=== PATIENT | male | born 1985 | race American Indian/Alaskan Native ===

== ENCOUNTER 2017-02-23 15:53 | Emergency (ER) | payer BC ==
[2017-02-23 16:48] VITALS: BP 145/89
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
--- NOTE | 2017-02-23 19:39 | Emergency Department Report ---
ED Extremity Problem HPI - General Chief complaint: Extremity Injury, Upper Stated complaint: RIGHT HAND PAIN Time Seen by Provider: 02/23/17 18:31 Source: patient Mode of arrival: Ambulatory Limitations: No Limitations - History of Present Illness MD Complaint: extremity pain Location: right, upper extremity Severity scale (0 -10): 10 - Related Data Previous Rx's Medication Instructions Recorded Last Taken Type Cyclobenzaprine [Flexeril] 10 mg PO TID PRN #15 tablet 10/31/13 Unknown Rx HYDROcodone/APAP 5-325 [[place] 1 - 2 each PO Q4-6H PRN #12 tablet 10/31/13 Unknown Rx 5/325 mg] Ibuprofen [Motrin 600 MG tab] 600 mg PO Q8H PRN #20 tablet 10/31/13 Unknown Rx HYDROcodone/APAP 5-325 [[place] 1 each PO Q4-6H PRN #16 tablet 11/28/14 Unknown Rx 5/325] Sulfamethoxazole/Trimethoprim 1 each PO Q12H #20 11/28/14 Unknown Rx [Bactrim Ds] metroNIDAZOLE [Flagyl] 500 mg PO Q8H #21 tablet 11/28/14 Unknown Rx Allergies Allergy/AdvReac Type Severity Reaction Status Date / Time No Known Allergies Allergy Verified 10/31/13 02:30 ED Review of Systems ROS: Stated complaint: RIGHT HAND PAIN Other details as noted in HPI ED Past Medical Hx - Past Medical History Hx Hypertension: Yes - Surgical History Past Surgical History?: No - Social History Smoking Status: Never Smoker Substance Use Type: None - Medications Home Medications: Home Medications Medication Instructions Recorded Confirmed Last Taken Type Cyclobenzaprine [Flexeril] 10 mg PO TID PRN #15 tablet 10/31/13 Unknown Rx HYDROcodone/APAP 5-325 [[place] 1 - 2 each PO Q4-6H PRN #12 tablet 10/31/13 Unknown Rx 5/325 mg] Ibuprofen [Motrin 600 MG tab] 600 mg PO Q8H PRN #20 tablet 10/31/13 Unknown Rx HYDROcodone/APAP 5-325 [[place] 1 each PO Q4-6H PRN #16 tablet 11/28/14 Unknown Rx 5/325] Sulfamethoxazole/Trimethoprim 1 each PO Q12H #20 11/28/14 Unknown Rx [Bactrim Ds] metroNIDAZOLE [Flagyl] 500 mg PO Q8H #21 tablet 11/28/14 Unknown Rx ED Physical Exam - General Limitations: No Limitations General appearance: alert, in no apparent distress - Head Head exam: Present: atraumatic, normocephalic - Neck Neck exam: Present: normal inspection, full ROM - Neurological Exam Neurological exam: Present: alert, normal gait - Psychiatric Psychiatric exam: Present: agitated ED Course Vital Signs 02/23/17 16:42 Temperature 98.5 F Pulse Rate 92 H Respiratory 16 Rate Blood Pressure 145/89 O2 Sat by Pulse 94 Oximetry - Reevaluation(s) Reevaluation #1: 02/23/17 19:35 Upon initial evaluation of pt, he was not cooperative. When I asked him questions regarding the reason for his ED visit/ injury, he sat up and began yelling. PT aware I will review chart and return in attempts to assess his injuries. 02/23/17 19:58 PT not in room. Prior to this, pt was in hallway yelling. Reevaluation #2: 02/23/17 20:25 PT not in room. Reevaluation #3: 02/23/17 21:20 PT not in room - Pulse Oximetry Interpretation Digit-Finger Initial Pulse Oximetry Readin Actions Taken: none ED Medical Decision Making - Radiology Data Radiology results: report reviewed XR R hand- Traumatic intra-articular fracture of the distal 4th phalanx - Differential Diagnosis fx, contusion, strain Critical Care Time: No Critical care attestation.: If time is entered above; I have spent that time in minutes in the direct care of this critically ill patient, excluding procedure time. ED Disposition Clinical Impression: Finger fracture, right Qualifiers: Encounter type: initial encounter Finger: ring finger Fracture type: closed Phalanx: distal Fracture alignment: displaced Qualified Code(s): S62.634A - Displaced fracture of distal phalanx of right ring finger, initial encounter for closed fracture Disposition: ELOPED Is pt being admited?: No Does the pt Need Aspirin: No Condition: Stable Referrals: PRIMARY CARE, [Primary Care Provider] - 3-5 Days VALE PENA MD [Staff Physician] - 3-5 Days Time of Disposition: 21:20
== END 2017-02-23 21:00 | disposition left against medical advice (07) ==
LOC: ED 15:53
DX: S62.634A Displaced fracture of distal phalanx of right ring finger, initial encounter for closed fracture (principal); I10 Essential (primary) hypertension; X58.XXXA Exposure to other specified factors, initial encounter; Y93.89 Activity, other specified; Y99.9 Unspecified external cause status; Y92.89 Other specified places as the place of occurrence of the external cause

== ENCOUNTER 2017-02-25 17:08 | Emergency (ER) | payer BC ==
[2017-02-25 17:18] VITALS: BP 149/95
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
[2017-02-25] MEDS ORDERED: MOTRIN PO ONE (18:36)
[2017-02-25] MEDS ORDERED: NORCO 5/325 PO ONE (18:36)
== END 2017-02-25 19:05 | disposition home or self-care (01) ==
LOC: ED 17:08
DX: S62.634A Displaced fracture of distal phalanx of right ring finger, initial encounter for closed fracture (principal); I10 Essential (primary) hypertension; W23.0XXA Caught, crushed, jammed, or pinched between moving objects, initial encounter; Y93.89 Activity, other specified; Y99.8 Other external cause status; Y92.488 Other paved roadways as the place of occurrence of the external cause

== ENCOUNTER 2017-09-17 12:44 | Emergency (ER) | payer BC ==
--- NOTE | 2017-09-17 14:20 | XRay Report ---
LEFT HAND, 3 views: History: Left hand injury. The bony architecture is intact. Bony alignment is normal. No soft tissue abnormalities are seen. The joint spaces appear preserved. IMPRESSION: Normal left hand.
[2017-09-17] MEDS ORDERED: MOTRIN PO ONE (14:36)
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
[2017-09-17 15:04] VITALS: BP 122/80
== END 2017-09-17 15:04 | disposition home or self-care (01) ==
LOC: ED 12:44
DX: S66.912A Strain of unspecified muscle, fascia and tendon at wrist and hand level, left hand, initial encounter (principal); I10 Essential (primary) hypertension; V89.2XXA Person injured in unspecified motor-vehicle accident, traffic, initial encounter; Y93.89 Activity, other specified; Y92.89 Other specified places as the place of occurrence of the external cause; Y99.8 Other external cause status
CPT/HCPCS: 99283

== ENCOUNTER 2019-04-18 10:25 | Emergency (ER) | payer SELFPAY | END 2019-04-18 13:33 | disposition left against medical advice (07) | LOC: ED 10:25 | DX: M25.529 Pain in unspecified elbow (principal); Z53.21 Procedure and treatment not carried out due to patient leaving prior to being seen by health care provider ==

== ENCOUNTER 2019-04-19 10:05 | Emergency (ER) | payer SELFPAY ==
[2019-04-19 10:10] VITALS: BP 143/100
--- NOTE | 2019-04-19 11:07 | Emergency Department Report ---
ED Upper Extremity Inj HPI - General Chief Complaint: Skin/Abscess/Foreign Body Stated Complaint: LFT ELBOW CYST/PAIN Time Seen by Provider: 04/19/19 10:24 Source: patient Mode of arrival: Ambulatory Limitations: No Limitations - History of Present Illness Initial Comments: This is a 33-year-old male nontoxic, well nourished in appearance, no acute sign s of distress presents to the ED with c/o of left elbow swelling x2 days. Patient denies any known trauma. Patient denies any numbness, tingling, fever, chills, nausea, vomiting, chest pain, shortness of breath, headache, stiff neck. Patient denies any joint redness. Patient denies decreased range of motion. Patient denies any allergies. PMH is HTN but stated he is noncompliant with medications and is doing diet control. MD Complaint: Injury to:: left, elbow -: days(s) (2) Other Extremity Injury: Elbow: Left Severity scale (0 -10): 0 Improves With: none Worsens With: none Associated Symptoms: denies other symptoms. denies: weakness, numbness, neck pain, suspects foreign body, nausea/vomiting, heard/felt popping sensat - Related Data Previous Rx's Medication Instructions Recorded Last Taken Type Cyclobenzaprine [Flexeril] 10 mg PO TID PRN #15 tablet 10/31/13 Unknown Rx HYDROcodone/APAP 5-325 [[place] 1 each PO Q4-6H PRN #16 tablet 11/28/14 Unknown Rx 5/325] Sulfamethoxazole/Trimethoprim 1 each PO Q12H #20 11/28/14 Unknown Rx [Bactrim Ds] metroNIDAZOLE [Flagyl] 500 mg PO Q8H #21 tablet 11/28/14 Unknown Rx HYDROcodone/APAP 5-325 [[place] 1 - 2 each PO Q4-6H PRN #12 tablet 02/25/17 Unknown Rx 5-325 mg TAB] Ibuprofen [Motrin 600 MG tab] 600 mg PO Q8H PRN #20 tablet 02/25/17 Unknown Rx Cyclobenzaprine [Flexeril] 10 mg PO QHS PRN #7 tablet 09/17/17 Unknown Rx Ibuprofen [Motrin] 600 mg PO Q8H PRN #30 tablet 09/17/17 Unknown Rx Naproxen [Naprosyn TAB] 500 mg PO Q12H PRN #20 tablet 04/19/19 Unknown Rx Allergies Allergy/AdvReac Type Severity Reaction Status Date / Time No Known Allergies Allergy Verified 04/19/19 10:06 ED Review of Systems ROS: Stated complaint: LFT ELBOW CYST/PAIN Other details as noted in HPI Constitutional: denies: chills, fever Eyes: denies: eye pain, eye discharge, vision change ENT: denies: ear pain, throat pain Respiratory: denies: cough, shortness of breath, wheezing Cardiovascular: denies: chest pain, palpitations Endocrine: no symptoms reported Gastrointestinal: denies: abdominal pain, nausea, diarrhea Genitourinary: denies: urgency, dysuria Musculoskeletal: denies: back pain, joint swelling, arthralgia Skin: denies: rash, lesions Neurological: denies: headache, weakness, paresthesias Psychiatric: denies: anxiety, depression Hematological/Lymphatic: denies: easy bleeding, easy bruising ED Past Medical Hx - Past Medical History Previous Medical History?: No Hx Hypertension: Yes (no meds) - Surgical History Past Surgical History?: No - Social History Smoking Status: Never Smoker Substance Use Type: None - Medications Home Medications: Home Medications Medication Instructions Recorded Confirmed Last Taken Type Cyclobenzaprine [Flexeril] 10 mg PO TID PRN #15 tablet 10/31/13 Unknown Rx HYDROcodone/APAP 5-325 [[place] 1 each PO Q4-6H PRN #16 tablet 11/28/14 Unknown Rx 5/325] Sulfamethoxazole/Trimethoprim 1 each PO Q12H #20 11/28/14 Unknown Rx [Bactrim Ds] metroNIDAZOLE [Flagyl] 500 mg PO Q8H #21 tablet 11/28/14 Unknown Rx HYDROcodone/APAP 5-325 [[place] 1 - 2 each PO Q4-6H PRN #12 tablet 02/25/17 Unknown Rx 5-325 mg TAB] Ibuprofen [Motrin 600 MG tab] 600 mg PO Q8H PRN #20 tablet 02/25/17 Unknown Rx Cyclobenzaprine [Flexeril] 10 mg PO QHS PRN #7 tablet 09/17/17 Unknown Rx Ibuprofen [Motrin] 600 mg PO Q8H PRN #30 tablet 09/17/17 Unknown Rx Naproxen [Naprosyn TAB] 500 mg PO Q12H PRN #20 tablet 04/19/19 Unknown Rx ED Physical Exam - General Limitations: No Limitations General appearance: alert, in no apparent distress - Head Head exam: Present: atraumatic, normocephalic - Extremities Exam Extremities exam: Present: normal inspection, full ROM, normal capillary refill. Absent: tenderness, joint swelling - Expanded Upper Extremity Exam Left General: Present: normal inspection Shoulder Exam: Present: normal inspection, full ROM. Absent: tenderness Upper Arm exam: Present: normal inspection, full ROM. Absent: tenderness Elbow exam: Present: normal inspection, full ROM, swelling (bursitis). Absent: tenderness, abrasion, laceration, ecchymosis, deformity, crepidus, dislocation, erythema, effusion, pain w/ pronation/supination, tenderness over radial head Forearm Wrist exam: Present: normal inspection, full ROM. Absent: tenderness Hand Wrist exam: Present: normal inspection, full ROM. Absent: tenderness Vascular: Present: vascular compromise, normal capillary refill - Neurological Exam Neurological exam: Present: alert, oriented X3, normal gait - Psychiatric Psychiatric exam: Present: normal affect, normal mood - Skin Skin exam: Present: warm, dry, intact, normal color. Absent: rash, erythema ED Course Vital Signs 04/19/19 10:07 Temperature 98.0 F Pulse Rate 101 H Respiratory 18 Rate Blood Pressure 143/100 O2 Sat by Pulse 99 Oximetry - Reevaluation(s) Reevaluation #1: 04/19/19 11:06 Patient is speaking in full sentences with no signs of distress noted. ED Medical Decision Making - Medical Decision Making 33-year-old male that presents with left elbow bursitis. Patient is stable and was examined by me. There is no signs of cellulitis. No redness. Normal range of motion. Vital signs are unremarkable. Patient was educated on hypertension. Stated is on a diet control. Patient was instructed to follow-up with a orthopedic doctor in 3-5 days or if symptoms worsen and continue to return to emergency room as soon as possible. Patient be discharged with Motrin. Patient was instructed to put ice intermittently. At time of discharge, the patient does not seem toxic or ill in appearance. No acute signs of distress noted. Patient agrees to discharge treatment plan of care. No further questions noted by the patient. - Differential Diagnosis bursitis, cellulitis, abscess, septic joint Critical care attestation.: If time is entered above; I have spent that time in minutes in the direct care of this critically ill patient, excluding procedure time. ED Disposition Clinical Impression: Uncontrolled hypertension Bursitis of left elbow Qualifiers: Elbow bursitis location: unspecified Qualified Code(s): M70.32 - Other bursitis of elbow, left elbow Disposition: TO HOME OR SELFCARE Is pt being admited?: No Does the pt Need Aspirin: No Condition: Stable Instructions: Elbow Bursitis (ED), Hypertension (ED) Additional Instructions: Follow-up with a primary care and orthopedic doctor in 3-5 days or if symptoms worsen and continue return to emergency room as soon as possible. Prescriptions: Naproxen [Naprosyn TAB] 500 mg PO Q12H PRN #20 tablet PRN Reason: Pain, Moderate (4-6) Referrals: PRIMARY CARE, [Primary Care Provider] - 3-5 Days VALE PENA MD [Staff Physician] - 3-5 Days HOANG BAJWA MD [Staff Physician] - 3-5 Days [facility] [Outside] - 3-5 Days [facility] [Outside] - 3-5 Days Forms: Work/School Release Form(ED) Time of Disposition: 11:11
== END 2019-04-19 11:25 | disposition home or self-care (01) ==
LOC: ED 10:05
DX: M70.32 Other bursitis of elbow, left elbow (principal); I10 Essential (primary) hypertension; Z79.899 Other long term (current) drug therapy

== ENCOUNTER 2020-04-11 17:57 | Emergency (ER) | payer SELFPAY | END 2020-04-11 19:43 | disposition left against medical advice (07) | LOC: ED 17:57 | DX: M25.571 Pain in right ankle and joints of right foot (principal); Z53.21 Procedure and treatment not carried out due to patient leaving prior to being seen by health care provider ==